=== PATIENT | female | born 1960 | race Caucasian/White ===

== ENCOUNTER 2018-03-21 16:05 | Emergency (ER) | payer SELFPAY ==
[~2018-03-21] VITALS: Ht 165.1 cm; Wt 66.0 kg
[2018-03-21 16:15] VITALS: Ht 165.1 cm; Wt 66.0 kg
[2018-03-21] MEDS ORDERED: DIAZEPAM INJ 5 MG/ML 2 ML CARP IV STA (16:38)
[2018-03-21] MEDS ORDERED: KETOROLAC TROMETHAMINE 30 MG/ML VIAL IV STA (16:38)
[2018-03-21] MEDS ORDERED: DIAZEPAM 5 MG/ML INJ 10ML VIAL ONE (16:54)
[2018-03-21 16:55] LABS: BASO % 0.4 %; BASO ABS # 0.03 K/uL (0-0.2); EOS ABS # 0.29 K/uL (0-0.5); HEMATOCRIT 38.3 % (37-47); HEMOGLOBIN 12.7 g/dL (12.0-16.0); IG# 0.02 K/uL (0.00-0.02); LYMPH ABS # 2.66 K/uL (1.2-3.4); MEAN CELL VOLUME 96.5 fL (80-100); MEAN CORPUSCULAR HGB CONC 33.2 g/dl (32-36); MEAN PLATELET VOLUME 10.7 fL (7.4-10.4); MONO ABS # 0.65 K/uL (0.11-0.59); NEUT % 49.3 %; NEUT ABS # 3.54 K/uL (1.4-6.5); PLATELET COUNT 328 K/uL (130-400); RED CELL DISTRIBUTION WIDTH CV 13.9 % (11.5-14.5); WHITE BLOOD COUNT 7.19 K/uL (4.8-10.8)
--- NOTE | 2018-03-21 17:01 | EMERGENCY ROOM VISIT NOTE ---
History First contact with patient: 16:20 Chief Complaint: FALL Stated Complaint: FALL History of Present Illness The patient is a 57 year old female who presents to the Emergency Room with complaints of a fall approximately 2 hours ago. The patient states she was running after her grandson who was on a scooter when her right hip gave out on her and she fell. Her daughter states she watched the incident from behind. The patient states she landed on her right shoulder, rolled, and slid on the left side. When she sat up, she took a few minutes to get her bearings. She states she became concerned that she was having bilateral shoulder pain. She states she does have a history of chronic right hip pain, which she thinks is why gave out on her in the first. She is now complaining of bilateral shoulder pain, left elbow pain,, left rib pain, left ankle pain. She states she is having severe neck and low back pain. She denies any dysuria or hematuria. She denies any significant dyspnea, chest pain, or severe abdominal pain. She does have significantly worsening pain with ambulating. She does have a history of right rib fracture which occurred with leaning over. Her last tetanus vaccination was 5-6 years ago. She did have an ibuprofen at approximately 11:00 this morning. She reports feeling very anxious about being in the hospital. Review of Systems A complete 10 point review of systems was reviewed with the patient with pertinent positives and negatives as per history of present illness. All else were negative. Past Medical/Surgical History Chronic right hip pain Social History Smoking Status: Current Every Day Smoker Alcohol Use: none Housing Status: lives with family Current/Historical Medications Scheduled Paroxetine (Paxil), 40 MG PO DAILY Scheduled PRN Ibuprofen Tab (Motrin), 800 MG PO Q8H PRN for Pain Physical Exam Vital Signs Date Time Temp Pulse Resp B/P (MAP) Pulse Ox O2 Delivery O2 Flow Rate FiO2 03/21/18 19:09 36.8 60 19 166/97 97 03/21/18 18:17 60 19 166/97 97 Room Air 03/21/18 16:15 36.8 67 17 148/97 96 Room Air Physical Exam VITALS: Vitals are noted on the nurse's note and reviewed by myself. Vital signs stable. GENERAL: This is a 57-year-old white female, in no acute distress, nondiaphoretic, well-developed well-nourished. SKIN: Multiple superficial abrasions noted on the shoulders, knees, and left ankle. The skin was without rashes, erythema, edema, or bruising. There is no tenting of the skin. Capillary reflex less than 2 seconds. HEAD: Normocephalic atraumatic. EARS: External auditory canals clear, tympanic membranes pearly bae without erythema or effusion bilaterally. EYES: Pupils equal round and reactive to light and accommodation. Conjunctivae without injection, sclerae without icterus. Extraocular movements intact. NOSE: Patent, turbinates without inflammation or discharge. No sinus tenderness. MOUTH: Mucous membranes moist. Tonsils are not enlarged. Pharynx without erythema or exudate. Uvula midline. Airway patent. Tongue does not deviate. NECK: Supple without nuchal rigidity. No lymphadenopathy. No thyromegaly. Cervical spine is minimally tender with significant tenderness of the paraspinous and trapezius muscles bilaterally. No JVD. HEART: Regular rate and rhythm without murmurs gallops or rubs. LUNGS: Clear to auscultation bilaterally without wheezes, rales or rhonchi. No dullness to percussion. No retractions or accessory muscle use. ABDOMEN: Positive bowel sounds x 4. Normal tympanic percussion. Soft, nontender, without masses or organomegaly. Mcdonald sign negative. No guarding or rebound tenderness. MUSCULOSKELETAL: No muscle atrophy, erythema, or edema noted. Very tender bilateral shoulders on palpation. The patient does have full range of motion in both shoulders, however states it is very painful. Full range of motion in all extremities. Tenderness of the medial aspect of the left ankle. There is no ligamentous instability. The patient is able to bear weight, however reports pain with dorsiflexion. The bilateral hip joints are tender to palpation. The patient does have good range of motion, but pain is increased with VINCENT testing. Tenderness of the left elbow on palpation. There is tenderness with extension and flexion, however extension and flexion are full. Normal gait. Strength 5/5 throughout. Neurovascular status of all extremities intact. NEURO: Patient was alert and oriented to person place and time. Normal sensation to light and sharp touch. Deep tendon reflexes 2+ throughout. No focal neurological deficits. Negative Romberg and pronator drift. Medical Decision & Procedures ER Provider Diagnostic Interpretation: [~ rep ct add3]] L ELBOW MIN 3 VIEWS ROUTINE CLINICAL HISTORY: Left elbow pain status post trauma COMPARISON: None. DISCUSSION: The fat pads are not significantly displaced. No fractures or dislocations are visualized. IMPRESSION: No fractures or dislocations identified Electronically signed by: Bayron Esparza M.D. 03/21/2018 5:32 PM Dictated Date/Time: 03/21/2018 5:31 PM L ANKLE MIN 3 VIEWS ROUTINE CLINICAL HISTORY: Left ankle pain status post trauma COMPARISON: None. DISCUSSION: No fractures or dislocations are visualized. IMPRESSION: No fractures or dislocations identified. Electronically signed by: Bayron Esparza M.D. 03/21/2018 5:32 PM Dictated Date/Time: 03/21/2018 5:32 PM R SHOULDER MIN 2 VIEWS ROUTINE CLINICAL HISTORY: Right shoulder pain status post trauma COMPARISON: None. DISCUSSION: Degenerative changes are present within the AC joint. No acute fractures or dislocations are visualized. IMPRESSION: No acute fractures or dislocations identified. Electronically signed by: Bayron Esparza M.D. 03/21/2018 5:31 PM Dictated Date/Time: 03/21/2018 5:31 PM L SHOULDER MIN 2 VIEWS ROUTINE CLINICAL HISTORY: Left shoulder pain status post trauma COMPARISON: None. DISCUSSION: Mild degenerative changes are present within the AC joint. No acute fractures or subluxations are visualized. IMPRESSION: No fractures or dislocations identified. Electronically signed by: Bayron Esparza M.D. 03/21/2018 5:30 PM Dictated Date/Time: 03/21/2018 5:[address] OF THE CERVICAL SPINE CLINICAL HISTORY: Neck pain status post trauma COMPARISON STUDY: No previous studies for comparison. CT DOSE: TECHNIQUE: CT scan of the cervical spine was performed from the skull base to the thoracic inlet. Images are reviewed in the axial, sagittal, and coronal planes. IV contrast was not administered for this examination. A dose lowering technique was utilized adhering to the principles of ALARA. FINDINGS: The visualized portions of the lung apices reveal no evidence of pneumothorax. There is a 4 mm solid left apical pulmonary nodule. In a low risk patient, no further follow-up is deemed necessary. Tiny air collections within the paratracheal region at the cervicothoracic inlet likely are secondary to a tiny tracheal diverticula. The prevertebral soft tissues are normal. No fractures or subluxations are visualized. There are mild to moderate multilevel degenerative changes IMPRESSION: No evidence of acute fracture or traumatic subluxation. Electronically signed by: Bayron Esparza M.D. 03/21/2018 6:18 PM Dictated Date/Time: 03/21/2018 6:[address] OF THE CHEST WITH IV CONTRAST CLINICAL HISTORY: Chest pain status post trauma COMPARISON STUDY: No previous studies for comparison. TECHNIQUE: Following the IV administration of 115 mL of Optiray-320, CT of the thorax was performed from the thoracic inlet to the lung bases. Images are reviewed in the axial, sagittal, and coronal planes. IV contrast was administered without complication. A dose lowering technique was utilized adhering to the principles of ALARA. CT DOSE: FINDINGS: Thyroid: Imaged portions of the thyroid gland are normal in appearance. Thoracic aorta: The thoracic aorta is normal in course and caliber, noting standard 3-vessel arch anatomy. No aneurysm or dissection is seen. Pulmonary vasculature: The pulmonary trunk is normal in caliber. There are no central filling defects identified to suggest pulmonary embolus. Note that this examination was not protocoled for the evaluation of pulmonary emboli. HEART: There are minor coronary artery calcifications. Lungs and pleural spaces: There are no pleural effusions. There are minor dependent atelectatic changes. There is no pneumothorax. There is mild emphysema. There is a 5 mm right apical pulmonary nodule and 4 mm left apical pulmonary nodule. Mediastinum: There is no mediastinal lymphadenopathy. There is no evidence of mediastinal hematoma Norma: There is no evidence of pathologic hilar adenopathy Axilla: There is no evidence of pathologic axillary lymphadenopathy Upper abdomen: Partially visualized upper abdominal viscera is within normal limits. Skeletal structures: No displaced rib fractures are visualized. IMPRESSION: 1. No evidence of acute intrathoracic injury 2. 5 mm right apical pulmonary nodule and 4 mm left apical pulmonary nodule. In a low risk patient, no follow-up is currently recommended. Please refer to below summary of Fleischner criteria recommendations for follow-up of incidental CT nodules (Milana Evans, Guidelines for management of small pulmonary nodules detected on CT scans: A statement from the Fleischner Society, Radiology 237: [phone].) SOLID NODULES Solitary nodule size: <6 mm * low risk patients: no follow-up needed * high risk patients: optional CT at 12 months Solitary nodule size: 6-8 mm * low risk patients: follow-up at 6-12 months, then consider further follow-up at 18-24 months * high risk patients: initial follow-up CT at 6-12 months and then at 18-24 months if no change Solitary nodule size: >8 mm * either low or high risk patients - consider follow-up CT at 3 months, and/or CT-PET, and/or biopsy Multiple nodules size: <6 mm * low risk patients: no routine follow-up * high risk patients: optional CT at [address] ABD/PELVIS IV CONTRAST ONLY CLINICAL HISTORY: Abdominal pain status post trauma COMPARISON STUDY: None. TECHNIQUE: Following the IV administration of 115 mL of Optiray-320, CT scan of the abdomen and pelvis was performed from the lung bases to the proximal femurs. Images are reviewed in the axial, sagittal, and coronal planes. IV contrast was administered without complication. A dose lowering technique was utilized adhering to the principles of ALARA. CT DOSE: 791.65 mGy.cm FINDINGS: Lower chest: The heart is normal in size and configuration, without pericardial effusion. The lung bases and pleural spaces are clear. Liver: There are subcentimeter right lobe hepatic hypodensities, likely representing cysts. Gallbladder: Unremarkable. Spleen: Normal in size and attenuation. Pancreas: Unremarkable. Adrenal glands: Unremarkable. Kidneys: There is a 1 cm lower pole left renal hypodensity which exceeds water attenuation, and is therefore indeterminate. Bowel: There are no transition zones indicate bowel obstruction. There are no interloop fluid collections. There are no extraluminal air collections. There are no transition zones indicate bowel obstruction. Peritoneum: There is no intraperitoneal free air or abdominal ascites. Vasculature: The abdominal aorta is normal in course and caliber. Adenopathy: None. Pelvic viscera: The uterus appears surgically absent. Skeletal structures: No destructive osseous lesions are seen. IMPRESSION: 1. No evidence of acute intra-abdominal or pelvic injury 2. 1 cm lower pole left renal hypodensity. This exceeds water attenuation and is therefore indeterminate. Electronically signed by: Bayron Esparza M.D. 03/21/2018 6:31 PM Dictated Date/Time: 03/21/2018 6:26 PM Laboratory Results 03/21/18 16:45 Red Blood Count 3.97, Mean Corpuscular Volume 96.5, Mean Corpuscular Hemoglobin 32.0, Mean Corpuscular Hemoglobin Concent 33.2, Mean Platelet Volume 10.7, Neutrophils (%) (Auto) 49.3, Lymphocytes (%) (Auto) 37.0, Monocytes (%) (Auto) 9.0, Eosinophils (%) (Auto) 4.0, Basophils (%) (Auto) 0.4, Neutrophils # (Auto) 3.54, Lymphocytes # (Auto) 2.66, Monocytes # (Auto) 0.65, Eosinophils # (Auto) 0.29, Basophils # (Auto) 0.03 03/21/18 16:45 Test 03/21/18 16:45 White Blood Count 7.19 K/uL (4.8-10.8) Red Blood Count 3.97 M/uL (4.2-5.4) Hemoglobin 12.7 g/dL (12.0-16.0) Hematocrit 38.3 % (37-47) Mean Corpuscular Volume 96.5 fL (80-100) Mean Corpuscular Hemoglobin 32.0 pg (25-34) Mean Corpuscular Hemoglobin Concent 33.2 g/dl (32-36) Platelet Count 328 K/uL (130-400) Mean Platelet Volume 10.7 fL (7.4-10.4) Neutrophils (%) (Auto) 49.3 % Lymphocytes (%) (Auto) 37.0 % Monocytes (%) (Auto) 9.0 % Eosinophils (%) (Auto) 4.0 % Basophils (%) (Auto) 0.4 % Neutrophils # (Auto) 3.54 K/uL (1.4-6.5) Lymphocytes # (Auto) 2.66 K/uL (1.2-3.4) Monocytes # (Auto) 0.65 K/uL (0.11-0.59) Eosinophils # (Auto) 0.29 K/uL (0-0.5) Basophils # (Auto) 0.03 K/uL (0-0.2) RDW Standard Deviation 49.0 fL (36.4-46.3) RDW Coefficient of Variation 13.9 % (11.5-14.5) Immature Granulocyte % (Auto) 0.3 % Immature Granulocyte # (Auto) 0.02 K/uL (0.00-0.02) Prothrombin Time 10.3 SECONDS (9.0-12.0) Prothromb Time International Ratio 1.0 (0.9-1.1) Activated Partial Thromboplast Time 26.8 SECONDS (21.0-31.0) Partial Thromboplastin Ratio 1.0 Anion Gap 4.0 mmol/L (3-11) Est Creatinine Clear Calc Drug Dose 64.9 ml/min Estimated GFR () 87.5 Estimated GFR (Non- 75.5 BUN/Creatinine Ratio 17.5 (10-20) Calcium Level 8.8 mg/dl (8.5-10.1) Total Bilirubin 0.4 mg/dl (0.2-1) Aspartate Amino Transf (AST/SGOT) 18 U/L (15-37) Alanine Aminotransferase (ALT/SGPT) 19 U/L (12-78) Alkaline Phosphatase 87 U/L (45-117) Total Protein 7.2 gm/dl (6.4-8.2) Albumin 3.8 gm/dl (3.4-5.0) Globulin 3.4 gm/dl (2.5-4.0) Albumin/Globulin Ratio 1.1 (0.9-2) Medications Administered Medications (Trade) Dose Ordered Sig/Prasad Route Start Time Stop Time Status Last Admin Dose Admin Ketorolac Tromethamine (Toradol Inj) 30 mg NOW STAT IV 03/21/18 16:38 03/21/18 16:46 DC 03/21/18 16:59 30 MG Diazepam (Valium Inj) 2 mg NOW STAT IV 03/21/18 16:38 03/21/18 16:46 DC 03/21/18 17:00 2 MG ED Course The patient was seen and evaluated as above. IV access obtained, labs drawn. The patient was given 30 mg Toradol and 2 mg Valium for her symptoms. X-rays performed and reviewed by myself and radiologist as above. CT scans performed and reviewed by myself and radiologist as above. Patient was reassessed. I discussed all findings with the patient at bedside. Discharge instructions reviewed, patient was discharged home in good condition. Medical Decision This is a 57-year-old female patient presents emergency department today complaining of a fall and multiple injuries. The patient is concerned for fractures, is complaining of some dyspnea, chest pain, and severe low back and neck pain. Based on the severity of her symptoms and "high pain tolerance" CT scans and x-rays performed as above. Imaging studies did not reveal any acute abnormal findings. There were pulmonary nodules as noted previously which I did discuss with the patient and encouraged follow-up with her PCP. The patient 's lab work did not reveal any significant anemia, thrombocytopenia, or leukocytosis. Coagulation studies were normal. The patient's renal, hepatic function and electrolytes were normal. I suspect multiple contusions as the cause of the patient's symptoms. There are no obvious fractures, intrathoracic , or intra-abdominal injuries noted. I did have a long discussion with the patient regarding the proper management. I discussed with her options for crutches, a walker, arm sling, and an ankle splint. The patient declines crutches, and states she has a walker at home. I do not feel that it is reasonable to place the patient in bilateral shoulder slings, and she is in agreement. The patient was encouraged to use the walker she has at home and wear the gel splint for comfort in the ankle. She was encouraged to follow-up next week with her PCP for further evaluation and recheck. The patient was agreeable. All questions answered to patient's satisfaction. Etiologies such as fracture, dislocation, soft tissue injury, intra-abdominal, intrathoracic, intracranial as well as other traumatic pathologies were entertained. The chart was completed utilizing [employer] Speech voice recognition software. Grammatical errors, random word insertions, pronoun errors, and incomplete sentences are an occasional consequence of this system due to software limitations, ambient noise, and hardware issues. Any formal questions or concerns about the content, text, or information contained within the body of this dictation should be directly addressed to the provider for clarification. Medication Reconcilliation Current Medication List: was personally reviewed by me Blood Pressure Screening Patient's blood pressure: Normal blood pressure Impression Primary Impression: Fall Additional Impressions: Contusion of multiple sites Left ankle sprain Bilateral shoulder pain Contusion of rib on left side Departure Information Dispostion Home / Self-Care Condition GOOD Referrals No Doctor, Assigned (PCP) Patient Instructions ED Contusion Rib, ED Contusion Soft Tissue, ED Mechanical Fall, ED Sprain Ankle , My [facility] Additional Instructions You were seen in the ED today for multiple contusions from a fall. Labs and x- ray did not reveal any acute fractures or injury. Incidentally, pulmonary nodules noted on the bilateral lung apices. As discussed, the should not need follow-up, however I do recommend you follow-up with your PCP for final determination. DO NOT drive, drink alcohol, operate machinery, or perform dangerous activities today. You were given medications in the ER that can affect your ability to safely function or operate a vehicle. Ibuprofen(Motrin, Advil) may be used for fever or pain. Use 600mg every six hours as needed. Take with food. Avoid using more than 2400mg in a 24 hour period. Do not use 2400mg per day for more than three consecutive days without physician direction. Prolonged inappropriate use can lead to stomach upset or ulcers. (AND/OR) Acetaminophen(Tylenol) may be used for fever or pain. Use 1000mg every six hours as needed. Avoid using more than 3000mg in a 24 hour period. Ice compresses for 20 minutes at a time four times daily for 2-3 days. Rest and elevate your injury. Use the gel splint as needed for ankle pain. Take big, deep breaths multiple times per hour to help prevent lung collapse. Return to the ER immediately for any numbness, tingling, severe pain, extreme swelling in the extremity or as needed. Follow-up with your primary care physician in 2 to 3 days for a recheck of your current condition. Problem Qualifiers Primary Impression: Fall Encounter type: initial encounter Qualified Codes: W19.XXXA - Unspecified fall, initial encounter Additional Impressions: Left ankle sprain Encounter type: initial encounter Involved ligament of ankle: unspecified ligament Qualified Codes: S93.402A - Sprain of unspecified ligament of left ankle, initial encounter Bilateral shoulder pain Chronicity: acute Qualified Codes: M25.511 - Pain in right shoulder; M25.512 - Pain in left shoulder Contusion of rib on left side Encounter type: initial encounter Qualified Codes: S20.212A - Contusion of left front wall of thorax, initial encounter
[2018-03-21 17:10] LABS: PTT PATIENT 26.8 SECONDS (21.0-31.0)
[2018-03-21 17:17] LABS: ALBUMIN 3.8 gm/dl (3.4-5.0); CALCIUM 8.8 mg/dl (8.5-10.1); CREATININE 0.85 mg/dl (0.60-1.20); POTASSIUM 3.8 mmol/L (3.5-5.1); TOTAL PROTEIN 7.2 gm/dl (6.4-8.2)
--- NOTE | 2018-03-21 17:32 | DIAGNOSTIC IMAGING REPORT ---
L SHOULDER MIN 2 VIEWS ROUTINE CLINICAL HISTORY: Left shoulder pain status post trauma COMPARISON: None. DISCUSSION: Mild degenerative changes are present within the AC joint. No acute fractures or subluxations are visualized. IMPRESSION: No fractures or dislocations identified. Electronically signed by: Bayron Esparza M.D. 03/21/2018 5:30 PM Dictated Date/Time: 03/21/2018 5:30 PM
--- NOTE | 2018-03-21 17:32 | DIAGNOSTIC IMAGING REPORT ---
R SHOULDER MIN 2 VIEWS ROUTINE CLINICAL HISTORY: Right shoulder pain status post trauma COMPARISON: None. DISCUSSION: Degenerative changes are present within the AC joint. No acute fractures or dislocations are visualized. IMPRESSION: No acute fractures or dislocations identified. Electronically signed by: Bayron Esparza M.D. 03/21/2018 5:31 PM Dictated Date/Time: 03/21/2018 5:31 PM
--- NOTE | 2018-03-21 17:33 | DIAGNOSTIC IMAGING REPORT ---
L ELBOW MIN 3 VIEWS ROUTINE CLINICAL HISTORY: Left elbow pain status post trauma COMPARISON: None. DISCUSSION: The fat pads are not significantly displaced. No fractures or dislocations are visualized. IMPRESSION: No fractures or dislocations identified Electronically signed by: Bayron Esparza M.D. 03/21/2018 5:32 PM Dictated Date/Time: 03/21/2018 5:31 PM
--- NOTE | 2018-03-21 17:34 | DIAGNOSTIC IMAGING REPORT ---
L ANKLE MIN 3 VIEWS ROUTINE CLINICAL HISTORY: Left ankle pain status post trauma COMPARISON: None. DISCUSSION: No fractures or dislocations are visualized. IMPRESSION: No fractures or dislocations identified. Electronically signed by: Bayron Esparza M.D. 03/21/2018 5:32 PM Dictated Date/Time: 03/21/2018 5:32 PM
[2018-03-21] MEDS ORDERED: OPTIRAY 320 IV PRN (17:45)
[2018-03-21] MEDS ORDERED: IBUP-1451 PO (18:11)
[2018-03-21] MEDS ORDERED: PARO1TAB29 PO (18:11)
--- NOTE | 2018-03-21 18:19 | DIAGNOSTIC IMAGING REPORT ---
CT OF THE CERVICAL SPINE CLINICAL HISTORY: Neck pain status post trauma COMPARISON STUDY: No previous studies for comparison. CT DOSE: TECHNIQUE: CT scan of the cervical spine was performed from the skull base to the thoracic inlet. Images are reviewed in the axial, sagittal, and coronal planes. IV contrast was not administered for this examination. A dose lowering technique was utilized adhering to the principles of ALARA. FINDINGS: The visualized portions of the lung apices reveal no evidence of pneumothorax. There is a 4 mm solid left apical pulmonary nodule. In a low risk patient, no further follow-up is deemed necessary. Tiny air collections within the paratracheal region at the cervicothoracic inlet likely are secondary to a tiny tracheal diverticula. The prevertebral soft tissues are normal. No fractures or subluxations are visualized. There are mild to moderate multilevel degenerative changes IMPRESSION: No evidence of acute fracture or traumatic subluxation. Electronically signed by: Bayron Esparza M.D. 03/21/2018 6:18 PM Dictated Date/Time: 03/21/2018 6:15 PM
--- NOTE | 2018-03-21 18:24 | DIAGNOSTIC IMAGING REPORT ---
CT OF THE CHEST WITH IV CONTRAST CLINICAL HISTORY: Chest pain status post trauma COMPARISON STUDY: No previous studies for comparison. TECHNIQUE: Following the IV administration of 115 mL of Optiray-320, CT of the thorax was performed from the thoracic inlet to the lung bases. Images are reviewed in the axial, sagittal, and coronal planes. IV contrast was administered without complication. A dose lowering technique was utilized adhering to the principles of ALARA. CT DOSE: FINDINGS: Thyroid: Imaged portions of the thyroid gland are normal in appearance. Thoracic aorta: The thoracic aorta is normal in course and caliber, noting standard 3-vessel arch anatomy. No aneurysm or dissection is seen. Pulmonary vasculature: The pulmonary trunk is normal in caliber. There are no central filling defects identified to suggest pulmonary embolus. Note that this examination was not protocoled for the evaluation of pulmonary emboli. HEART: There are minor coronary artery calcifications. Lungs and pleural spaces: There are no pleural effusions. There are minor dependent atelectatic changes. There is no pneumothorax. There is mild emphysema. There is a 5 mm right apical pulmonary nodule and 4 mm left apical pulmonary nodule. Mediastinum: There is no mediastinal lymphadenopathy. There is no evidence of mediastinal hematoma Norma: There is no evidence of pathologic hilar adenopathy Axilla: There is no evidence of pathologic axillary lymphadenopathy Upper abdomen: Partially visualized upper abdominal viscera is within normal limits. Skeletal structures: No displaced rib fractures are visualized. IMPRESSION: 1. No evidence of acute intrathoracic injury 2. 5 mm right apical pulmonary nodule and 4 mm left apical pulmonary nodule. In a low risk patient, no follow-up is currently recommended. Please refer to below summary of Fleischner criteria recommendations for follow-up of incidental CT nodules (Milana Evans, Guidelines for management of small pulmonary nodules detected on CT scans: A statement from the Fleischner Society, Radiology 237: [phone].) SOLID NODULES Solitary nodule size: <6 mm * low risk patients: no follow-up needed * high risk patients: optional CT at 12 months Solitary nodule size: 6-8 mm * low risk patients: follow-up at 6-12 months, then consider further follow-up at 18-24 months * high risk patients: initial follow-up CT at 6-12 months and then at 18-24 months if no change Solitary nodule size: >8 mm * either low or high risk patients - consider follow-up CT at 3 months, and/or CT-PET, and/or biopsy Multiple nodules size: <6 mm * low risk patients: no routine follow-up * high risk patients: optional CT at 12 months Multiple nodules size: 6-8 mm * low risk patients: follow-up at 3-6 months, then consider further follow-up at 18-24 months * high risk patients: follow-up at 3-6 months, then at 18-24 months if no change Multiple nodules size: >8 mm * low risk patients: follow-up at 3-6 months, then consider further follow-up at 18-24 months * high risk patients: follow-up at 3-6 months, then at 18-24 months if no change Note: newly detected indeterminate nodule in persons 35 years of age or older. * low risk patients: minimal or absent history of smoking and/or other known risk factors * high risk patients: history of smoking or of other known risk factors (e.g. first degree relative with lung cancer, or exposure to asbestos, radon, uranium) * if a nodule up to 8 mm is partly solid or is ground glass further follow-up is required after 24 months to exclude possible slow growing adenocarcinoma (AMAURI) SUBSOLID NODULES Solitary pure ground-glass nodule * nodule size <6 mm - no CT follow-up required * nodule size >=6 mm - follow-up CT at 6-12 months, then every 2 years until 5 years Solitary part-solid nodule * nodule size <6 mm - no CT follow-up required * nodule size >=6 mm - follow-up CT at 3-6 months. If unchanged, and solid component remains <6 mm, then annual follow-up for 5 years Multiple subsolid nodules * nodule size <6 mm - follow-up CT at 3-6 months, consider further follow-up at 2 and 4 years if stable * nodule size >=6 mm - follow-up CT at 3-6 months, subsequent management based on the most suspicious nodule(s) Electronically signed by: Bayron Esparza M.D. 03/21/2018 6:23 PM Dictated Date/Time: 03/21/2018 6:18 PM
--- NOTE | 2018-03-21 18:33 | DIAGNOSTIC IMAGING REPORT ---
CT ABD/PELVIS IV CONTRAST ONLY CLINICAL HISTORY: Abdominal pain status post trauma COMPARISON STUDY: None. TECHNIQUE: Following the IV administration of 115 mL of Optiray-320, CT scan of the abdomen and pelvis was performed from the lung bases to the proximal femurs. Images are reviewed in the axial, sagittal, and coronal planes. IV contrast was administered without complication. A dose lowering technique was utilized adhering to the principles of ALARA. CT DOSE: 791.65 mGy.cm FINDINGS: Lower chest: The heart is normal in size and configuration, without pericardial effusion. The lung bases and pleural spaces are clear. Liver: There are subcentimeter right lobe hepatic hypodensities, likely representing cysts. Gallbladder: Unremarkable. Spleen: Normal in size and attenuation. Pancreas: Unremarkable. Adrenal glands: Unremarkable. Kidneys: There is a 1 cm lower pole left renal hypodensity which exceeds water attenuation, and is therefore indeterminate. Bowel: There are no transition zones indicate bowel obstruction. There are no interloop fluid collections. There are no extraluminal air collections. There are no transition zones indicate bowel obstruction. Peritoneum: There is no intraperitoneal free air or abdominal ascites. Vasculature: The abdominal aorta is normal in course and caliber. Adenopathy: None. Pelvic viscera: The uterus appears surgically absent. Skeletal structures: No destructive osseous lesions are seen. IMPRESSION: 1. No evidence of acute intra-abdominal or pelvic injury 2. 1 cm lower pole left renal hypodensity. This exceeds water attenuation and is therefore indeterminate. Electronically signed by: Bayron Esparza M.D. 03/21/2018 6:31 PM Dictated Date/Time: 03/21/2018 6:26 PM
[2018-03-21 19:09] VITALS: BP 166/97; PULSE 60; TEMP 36.8; O2SAT 97
== END 2018-03-21 19:09 | disposition home or self-care (01) ==
LOC: C.EDB 16:07 → C.EDD 19:09
DX: S93.402A Sprain of unspecified ligament of left ankle, initial encounter (principal); S20.212A Contusion of left front wall of thorax, initial encounter; M25.511 Pain in right shoulder; M25.512 Pain in left shoulder; T14.8XXA Other injury of unspecified body region, initial encounter; W19.XXXA Unspecified fall, initial encounter; Y92.89 Other specified places as the place of occurrence of the external cause; M25.551 Pain in right hip; G89.29 Other chronic pain; Z79.899 Other long term (current) drug therapy; F17.210 Nicotine dependence, cigarettes, uncomplicated